=== PATIENT | male | born 1945 | race Caucasian/White ===

== ENCOUNTER 2018-12-13 06:15 | Inpatient (IN) | payer MEDICARE, BC ==
[~2018-12-13] VITALS: Ht 172.7 cm; Wt 81.6 kg
--- NOTE | 2018-12-13 13:20 | NUR ---
ELECTRONICS TECHNOLOGY INSTRUCTOR NOTE :ADMITTED A 73 Y/O MALE ON 5150 HOLD FOR GD PER 5150 HOLD PATIENT ADMITTED FOR FAILURE TO THRIVE ,BECAUSE OF SEVERE DEPRESSION AND LOST 25 POUNDS BECAUSE OF POOR APPETITE NEGLECT BASIC SELF CARE ACTIVITIES,ADVISEMENT GIVEN AND EXPLAINED TO PATIENT .ON 1:1 ASSESSMENT PATIENT ALERT ,ORIENTED TO PERSON UNSTEADY GAIT ,EASILY AGITATED AND UNCOOPERATIVE ,REFUSED BODY ASSESSMENT AND SKIN ASSESSMENT .PATIENT EASILY AGITATED STATED "I WANT TO LEAVE FROM HERE ".PATIENT HAS HX OF DEPRESSION ,TYPE 2 DIABETES MELLITUS ,ESSENTIAL HYPERTENSION,HYPOTHYROIDISM ,HYPERCHOLESTEROLEMIA ,MAJOR DEPRESSIVE DISORDER , NOTIFIED WITH NEW ORDERS .ALL BELONGINGS CHECK BY STAFF PATIENT'S RIGHT HAND BOOK GIVEN AND TO PATIENT AND EXPLAINED TO PATIENT ,START PATIENT ON Q15 MINUTES SAFETY CHECK
[2018-12-13] MEDS ORDERED: MAGNESIUM HYDROXIDE 30 ML UDC PO PRN (13:30)
[2018-12-13] MEDS ORDERED: ACETAMINOPHEN 325 MG TABLET PO PRN (13:30)
[2018-12-13] MEDS ORDERED: TEMAZEPAM 7.5 MG CAPSULE PO PRN (13:30)
[2018-12-13] MEDS ORDERED: MAG HYDROX/AL HYDROX/SIMETH 30 ML UDC PO PRN (13:30)
[2018-12-13] MEDS ORDERED: clonazePAM 0.5 MG TABLET PO PRN (13:30)
[2018-12-13] MEDS ORDERED: SITA50TA PO (13:33)
[2018-12-13] MEDS ORDERED: MELO-107 PO (13:33)
[2018-12-13] MEDS ORDERED: LEVO50TA8 PO (13:33)
[2018-12-13] MEDS ORDERED: BUPR100T6 PO (13:33)
[2018-12-13] MEDS ORDERED: PRAV20TA4 PO (13:33)
[2018-12-13] MEDS ORDERED: LIOT5TAB9 PO (13:33)
[2018-12-13] MEDS ORDERED: LOSA50TA39 PO (13:33)
[2018-12-13] MEDS ORDERED: PIOG30TA10 PO (13:33)
[2018-12-13] MEDS ORDERED: ASPI-605 PO (13:33)
[2018-12-13] MEDS ORDERED: ARIP5TAB20 PO (13:33)
[2018-12-13 16:00] VITALS: BP 125/67
--- NOTE | 2018-12-13 17:38 | NUR ---
RN-CO: PAGED DR MORLEY TO RECONCILE HOME MEDICATIONS.
[2018-12-13 20:22] VITALS: BP 146/69
[2018-12-13] MEDS: ARIPIPRAZOLE 5 MG TABLET PO SCH (21:34)
[2018-12-14 06:33] LABS: ALANINE AMINOTRANSFERASE 15 U/L (12-78); ALBUMIN 3.7 g/dL (3.4-5.0); ALKALINE PHOSPHATASE 69 U/L (46-116); ASPARTATE AMINOTRANSFERASE 9 U/L (15-37); BILIRUBIN,TOTAL 0.3 mg/dL (0.2-1.0); CALCIUM, SERUM 8.7 mg/dL (8.5-10.1); CARBON DIOXIDE 28 mmol/L (21-32); CHLORIDE 102 mmol/L (98-107); CREATININE 1.3 mg/dL (0.6-1.3); GLUCOSE 112 mg/dL (74-106); POTASSIUM 4.1 mmol/L (3.5-5.1); SODIUM SERUM 137 mmol/L (136-145); UREA NITROGEN, BLOOD 26 mg/dL (7-18)
[2018-12-14 07:08] LABS: CHOLESTEROL 152 mg/dL (<200); HDL CHOLESTEROL 42 mg/dL (40-60); LDL 83 mg/dL (0-99); TRIGLYCERIDES 163 mg/dL (30-150)
[2018-12-14 08:00] VITALS: BP 160/72
[2018-12-14] MEDS: buPROPion SR 100 MG TABLET.ER PO SCH (08:41)
--- NOTE | 2018-12-14 12:34 | NUR ---
WOUND CARE CONSULT: PT PRESENTS WITH DRY ABRASION TO RT KNEE, PRESENT ON ADMISSION. NO TENDERNESS, DRAINAGE OR SURROUNDING REDNESS NOTED. WILL SEE PRN. CURRENT TOY SCORE IS 19.
[2018-12-14 16:00] VITALS: BP 136/59
[2018-12-14 20:43] VITALS: BP 156/60
[2018-12-14] MEDS: ATORVASTATIN 10 MG TABLET PO SCH (21:12)
[2018-12-14] MEDS: ARIPIPRAZOLE 5 MG TABLET PO SCH (21:12)
[2018-12-14 22:00] VITALS: BP 137/69
[2018-12-15 06:56] LABS: THYROID STIMULATING HORMONE 1.871 uIU/mL (0.358-3.74)
[2018-12-15] MEDS: LEVOTHYROXINE SODIUM 50 MCG TABLET PO SCH (07:53)
[2018-12-15 08:00] VITALS: BP 125/67
[2018-12-15] MEDS: MELOXICAM 7.5 MG TABLET PO SCH (08:05)
[2018-12-15] MEDS: ASPIRIN EC 81 MG TABLET.DR PO SCH (08:05)
[2018-12-15] MEDS: buPROPion SR 100 MG TABLET.ER PO SCH (08:05)
[2018-12-15] MEDS: LINAGLIPTIN 5 MG TABLET PO SCH (08:05)
[2018-12-15] MEDS: LOSARTAN POTASSIUM 50 MG TABLET PO SCH (08:06)
[2018-12-15] MEDS: LIOTHYRONINE SODIUM (5 MCG/TA 5 MCG TABLET PO SCH (08:06)
--- NOTE | 2018-12-15 13:45 | NUR ---
CHRISTIANE called the pt's son, Gustavo ([phone]), and left a voicemail stating that the SW would like a call back to discuss the pts case.
--- NOTE | 2018-12-15 14:59 | NUR ---
Initial Discharge Plan: Per pt, he currently resides at [address] [place] [address]; ([phone]) alone. CHRISTIANE has not been able to verify the address at this time. CHRISTIANE will work with the pt and the MD regarding appropriate discharge planning. SW will form a safe and proper discharge.
--- NOTE | 2018-12-15 14:59 | NUR ---
Private Branch Exchange Service Adviser Group Session-- Goal: Patient will attend group being held today from 11am -11:45 in the activities room and participate and/or actively listen to peers and be respectful. Intervention: SW facilitated group session with patients regarding the goal or positive outcome/s pt. would like to see happen as a result of their stay in [facility]. SW validated and normalized the pt.�s struggle with expressing his emotions verbally. SW educated the pt. on the stigma surrounding males expressing their emotions and acknowledged patient�s good insight. SW encouraged the patient to plan small objectives towards his goal. Response: Patient was agreeable to participating in group. Patient was alert and oriented. Patient remained calm and cooperative throughout group session. Per patient, he would like his relationships to prosper as a result of his stay at [facility]. Per pt., he has difficulty expressing his emotions verbally and stated, "my ego gets in the way�. Per Patient he is working on expressing his feeling verbally which he has had difficulty with in the past. Patient expressed understanding and was in agreement with stigma surrounding males expressing emotions and stated that he has objectives in mind towards his goal. Plan: Patient will be invited to attend next medical social worker group held.
[2018-12-15] MEDS: ARIPIPRAZOLE 5 MG TABLET PO SCH ×2 (15:23→21:23)
[2018-12-15 16:00] VITALS: BP 142/67
[2018-12-15 19:52] VITALS: BP 126/54
[2018-12-15] MEDS: ATORVASTATIN 10 MG TABLET PO SCH (21:23)
[2018-12-16] MEDS: LEVOTHYROXINE SODIUM 50 MCG TABLET PO SCH (07:17)
[2018-12-16 08:00] VITALS: BP 119/78
[2018-12-16] MEDS: MELOXICAM 7.5 MG TABLET PO SCH (08:17)
[2018-12-16] MEDS: LOSARTAN POTASSIUM 50 MG TABLET PO SCH (08:17)
[2018-12-16] MEDS: ARIPIPRAZOLE 5 MG TABLET PO SCH (08:17)
[2018-12-16] MEDS: buPROPion SR 100 MG TABLET.ER PO SCH (08:17)
[2018-12-16] MEDS: LINAGLIPTIN 5 MG TABLET PO SCH (08:17)
[2018-12-16] MEDS: LIOTHYRONINE SODIUM (5 MCG/TA 5 MCG TABLET PO SCH (08:17)
[2018-12-16] MEDS: ASPIRIN EC 81 MG TABLET.DR PO SCH (08:17)
--- NOTE | 2018-12-16 09:41 | NUR ---
SW called the pt's son, Gustavo ([phone]), and he provided the SW with an address for the pt that did not match the address that the pt had provided the SW with. SW informed the pts son that the discharge plan may entail sending the pt to a nursing facility and the pts son stated that he wanted the pt to have a therapist. CHRISTIANE stated she would inform the psychiatrist to put in a referral for the hospital's psychologist.
--- NOTE | 2018-12-16 09:52 | NUR ---
SW called the pts granddaughter, Krystal ([phone]), who has lived with him in the apartment for the past 2-3 years. CHRISTIANE informed her that the pt may be discharged to a nursing facility and she stated that she would accept any recommendation from the psychiatrist.
[2018-12-16] MEDS ORDERED: DEXTROSE 50%-WATER 50 ML DISP.SYRIN IV PRN (11:00)
[2018-12-16] MEDS: BLOOD SUGAR DIAGNOSTIC 1 EACH STRIP IN SCH ×3 (11:31→21:16)
[2018-12-16] MEDS: INSULIN REGULAR, HUMAN 100 UNIT/ML 3 ML VIAL SQ PRN ×3 (11:50→21:22)
[2018-12-16 16:27] VITALS: BP 145/65
[2018-12-16 20:00] VITALS: BP 156/73
[2018-12-16] MEDS: ATORVASTATIN 10 MG TABLET PO SCH (21:22)
[2018-12-16] MEDS: OLANZAPINE 5 MG/TAB.RAPDIS PO SCH (21:22)
--- NOTE | 2018-12-16 21:22 | NUR ---
RN NOTES BSL- 214mg/dL. 4 units of insulin given per sliding scale. Snacks provided
[2018-12-17 06:48] LABS: BASOPHILS % (AUTO) 0.6 % (0.0-2.0); HEMATOCRIT 40 % (39-51); HEMOGLOBIN 12.9 g/dL (13.5-17.5); LYMPHOCYTES % (AUTO) 27.6 % (20.0-44.0); MEAN CORPUSCULAR HGB CONC 33 g/dl (31.0-36.0); MEAN CORPUSCULAR VOLUME 89 fL (80-96); MONOCYTES # (AUTO) 0.8 /CMM (0.1-1.30); MONOCYTES % (AUTO) 11.2 % (2.0-12.0); NEUTROPHILS # (AUTO) 4.3 /CMM (1.8-8.9); NEUTROPHILS % (AUTO) 58.6 % (43.0-81.0); PLATELET COUNT (AUTO) 284 /CMM (150-450); RED BLOOD CELL COUNT(AUTO) 4.44 MIL/uL (4.5-6.0); WHITE BLOOD COUNT (AUTO) 7.3 K/uL (4.3-11.0)
[2018-12-17 07:16] LABS: CALCIUM, SERUM 8.6 mg/dL (8.5-10.1); CARBON DIOXIDE 25 mmol/L (21-32); CHLORIDE 106 mmol/L (98-107); CREATININE 1.5 mg/dL (0.6-1.3); GLUCOSE 138 mg/dL (74-106); POTASSIUM 4.5 mmol/L (3.5-5.1); SODIUM SERUM 139 mmol/L (136-145); UREA NITROGEN, BLOOD 33 mg/dL (7-18)
[2018-12-17 08:00] VITALS: BP 151/69
[2018-12-17] MEDS: MELOXICAM 7.5 MG TABLET PO SCH (08:08)
[2018-12-17] MEDS: BLOOD SUGAR DIAGNOSTIC 1 EACH STRIP IN SCH ×4 (08:08→21:58)
[2018-12-17] MEDS: buPROPion SR 100 MG TABLET.ER PO SCH (08:09)
[2018-12-17] MEDS: LIOTHYRONINE SODIUM (5 MCG/TA 5 MCG TABLET PO SCH (08:09)
[2018-12-17] MEDS: ASPIRIN EC 81 MG TABLET.DR PO SCH (08:09)
[2018-12-17] MEDS: LOSARTAN POTASSIUM 50 MG TABLET PO SCH (08:09)
[2018-12-17] MEDS: LEVOTHYROXINE SODIUM 50 MCG TABLET PO SCH (08:09)
[2018-12-17] MEDS: LINAGLIPTIN 5 MG TABLET PO SCH (08:09)
[2018-12-17] MEDS: INSULIN REGULAR, HUMAN 100 UNIT/ML 3 ML VIAL SQ PRN ×4 (08:12→22:02)
[2018-12-17 16:00] VITALS: BP_SYST 100; BP_SYST 95; BP_DIAS 65; BP_DIAS 66
[2018-12-17 20:00] VITALS: BP 150/64
[2018-12-17] MEDS: OLANZAPINE 5 MG/TAB.RAPDIS PO SCH (21:28)
[2018-12-17] MEDS: ATORVASTATIN 10 MG TABLET PO SCH (21:28)
[2018-12-18 06:23] LABS: BASOPHILS # (AUTO) 0.1 /CMM (0.0-0.2); BASOPHILS % (AUTO) 0.7 % (0.0-2.0); EOSINOPHILS % (AUTO) 2.9 % (0.0-6.0); HEMATOCRIT 39 % (39-51); HEMOGLOBIN 13.2 g/dL (13.5-17.5); LYMPHOCYTES # (AUTO) 1.8 /CMM (0.8-4.8); LYMPHOCYTES % (AUTO) 25.5 % (20.0-44.0); MEAN CORPUSCULAR HGB CONC 34 g/dl (31.0-36.0); MEAN CORPUSCULAR VOLUME 89 fL (80-96); MONOCYTES # (AUTO) 0.8 /CMM (0.1-1.30); MONOCYTES % (AUTO) 11.1 % (2.0-12.0); NEUTROPHILS # (AUTO) 4.3 /CMM (1.8-8.9); NEUTROPHILS % (AUTO) 59.8 % (43.0-81.0); PLATELET COUNT (AUTO) 272 /CMM (150-450); RED BLOOD CELL COUNT(AUTO) 4.33 MIL/uL (4.5-6.0); WHITE BLOOD COUNT (AUTO) 7.2 K/uL (4.3-11.0)
[2018-12-18 06:51] LABS: CALCIUM, SERUM 8.3 mg/dL (8.5-10.1); CARBON DIOXIDE 23 mmol/L (21-32); CHLORIDE 108 mmol/L (98-107); CREATININE 1.3 mg/dL (0.6-1.3); GLUCOSE 132 mg/dL (74-106); MAGNESIUM 2.1 mg/dL (1.8-2.4); PHOSPHORUS 2.9 mg/dL (2.5-4.9); POTASSIUM 4.7 mmol/L (3.5-5.1); SODIUM SERUM 141 mmol/L (136-145); UREA NITROGEN, BLOOD 29 mg/dL (7-18)
[2018-12-18] MEDS: BLOOD SUGAR DIAGNOSTIC 1 EACH STRIP IN SCH ×4 (07:36→21:03)
--- NOTE | 2018-12-18 07:38 | NUR ---
RN NOTE: 0700 BS 130 MG/DL; NO INSULIN COVERAGE NEEDED.
[2018-12-18 08:00] VITALS: BP 121/69
[2018-12-18] MEDS: ASPIRIN EC 81 MG TABLET.DR PO SCH (08:23)
[2018-12-18] MEDS: MELOXICAM 7.5 MG TABLET PO SCH (08:24)
[2018-12-18] MEDS: buPROPion SR 100 MG TABLET.ER PO SCH (08:24)
[2018-12-18] MEDS: LIOTHYRONINE SODIUM (5 MCG/TA 5 MCG TABLET PO SCH (08:24)
[2018-12-18] MEDS: LEVOTHYROXINE SODIUM 50 MCG TABLET PO SCH (08:25)
[2018-12-18] MEDS: LINAGLIPTIN 5 MG TABLET PO SCH (08:25)
[2018-12-18] MEDS: LOSARTAN POTASSIUM 50 MG TABLET PO SCH (08:25)
[2018-12-18] MEDS: INSULIN REGULAR, HUMAN 100 UNIT/ML 3 ML VIAL SQ PRN ×2 (12:12→17:16)
[2018-12-18 16:00] VITALS: BP 162/76
--- NOTE | 2018-12-18 17:19 | NUR ---
RN NOTE: PATIENT'S BS 171 MG/DL; 3 UNITS OF INSULIN GIVEN PER SLIDING SCALE.
[2018-12-18 17:34] VITALS: BP 104/58
--- NOTE | 2018-12-18 19:42 | NUR ---
COMFORTABLE, RESTING, CALM AND QUIET. A/O X3.
[2018-12-18 20:06] VITALS: BP 111/57
[2018-12-18] MEDS: OLANZAPINE 5 MG/TAB.RAPDIS PO SCH (21:03)
[2018-12-18] MEDS: ATORVASTATIN 10 MG TABLET PO SCH (21:03)
[2018-12-19] MEDS: BLOOD SUGAR DIAGNOSTIC 1 EACH STRIP IN SCH ×4 (07:50→22:11)
[2018-12-19 08:00] VITALS: BP 134/76
[2018-12-19] MEDS: INSULIN REGULAR, HUMAN 100 UNIT/ML 3 ML VIAL SQ PRN ×4 (08:19→22:16)
--- NOTE | 2018-12-19 08:21 | NUR ---
RN NOTE: PATIENT BS 150 MG/DL; 2 UNITS INSULIN GIVEN PER SLIDING SCALE
[2018-12-19] MEDS: LINAGLIPTIN 5 MG TABLET PO SCH (08:22)
[2018-12-19] MEDS: LIOTHYRONINE SODIUM (5 MCG/TA 5 MCG TABLET PO SCH (08:22)
[2018-12-19] MEDS: LEVOTHYROXINE SODIUM 50 MCG TABLET PO SCH (08:22)
[2018-12-19] MEDS: ASPIRIN EC 81 MG TABLET.DR PO SCH (08:22)
[2018-12-19] MEDS: MELOXICAM 7.5 MG TABLET PO SCH (08:22)
[2018-12-19] MEDS: buPROPion SR 100 MG TABLET.ER PO SCH (08:22)
[2018-12-19] MEDS: LOSARTAN POTASSIUM 50 MG TABLET PO SCH (08:23)
[2018-12-19 16:44] VITALS: BP 136/65
[2018-12-19 20:23] VITALS: BP 142/67
[2018-12-19] MEDS: OLANZAPINE 5 MG/TAB.RAPDIS PO SCH (22:12)
[2018-12-19] MEDS: ATORVASTATIN 10 MG TABLET PO SCH (22:12)
[2018-12-20 08:00] VITALS: BP 149/78
[2018-12-20] MEDS: ASPIRIN EC 81 MG TABLET.DR PO SCH (08:24)
[2018-12-20] MEDS: LIOTHYRONINE SODIUM (5 MCG/TA 5 MCG TABLET PO SCH (08:24)
[2018-12-20] MEDS: BLOOD SUGAR DIAGNOSTIC 1 EACH STRIP IN SCH ×4 (08:24→21:59)
[2018-12-20] MEDS: LEVOTHYROXINE SODIUM 50 MCG TABLET PO SCH (08:24)
[2018-12-20] MEDS: LINAGLIPTIN 5 MG TABLET PO SCH (08:24)
[2018-12-20] MEDS: INSULIN REGULAR, HUMAN 100 UNIT/ML 3 ML VIAL SQ PRN ×4 (08:24→22:02)
[2018-12-20] MEDS: MELOXICAM 7.5 MG TABLET PO SCH (08:24)
[2018-12-20] MEDS: buPROPion SR 100 MG TABLET.ER PO SCH (08:24)
[2018-12-20] MEDS: LOSARTAN POTASSIUM 50 MG TABLET PO SCH (08:26)
--- NOTE | 2018-12-20 09:28 | NUR ---
CHRISTIANE faxed a referral to [facility] with attention to Tanisha to the fax number: [phone].
--- NOTE | 2018-12-20 10:59 | NUR ---
Nell ([phone]) from [facility] contacted the and informed her that the pt was accepted to the facility.
[2018-12-20 16:00] VITALS: BP 138/84
[2018-12-20 20:00] VITALS: BP 129/58
[2018-12-20] MEDS: ATORVASTATIN 10 MG TABLET PO SCH (21:59)
[2018-12-20] MEDS: OLANZAPINE 5 MG TABLET PO SCH (21:59)
[2018-12-21] MEDS: LEVOTHYROXINE SODIUM 50 MCG TABLET PO SCH (07:30)
[2018-12-21] MEDS: BLOOD SUGAR DIAGNOSTIC 1 EACH STRIP IN SCH ×4 (07:30→22:04)
[2018-12-21 07:46] LABS: CALCIUM, SERUM 8.6 mg/dL (8.5-10.1); CARBON DIOXIDE 25 mmol/L (21-32); CHLORIDE 108 mmol/L (98-107); CREATININE 1.4 mg/dL (0.6-1.3); GLUCOSE 166 mg/dL (74-106); MAGNESIUM 2.3 mg/dL (1.8-2.4); PHOSPHORUS 2.6 mg/dL (2.5-4.9); POTASSIUM 4.5 mmol/L (3.5-5.1); SODIUM SERUM 142 mmol/L (136-145); UREA NITROGEN, BLOOD 30 mg/dL (7-18)
[2018-12-21 07:49] LABS: BASOPHILS % (AUTO) 0.8 % (0.0-2.0); EOSINOPHILS % (AUTO) 3.1 % (0.0-6.0); HEMATOCRIT 39 % (39-51); HEMOGLOBIN 12.9 g/dL (13.5-17.5); LYMPHOCYTES # (AUTO) 1.5 /CMM (0.8-4.8); LYMPHOCYTES % (AUTO) 25.6 % (20.0-44.0); MEAN CORPUSCULAR HGB CONC 33 g/dl (31.0-36.0); MEAN CORPUSCULAR VOLUME 90 fL (80-96); MONOCYTES # (AUTO) 0.7 /CMM (0.1-1.30); MONOCYTES % (AUTO) 11.1 % (2.0-12.0); NEUTROPHILS # (AUTO) 3.5 /CMM (1.8-8.9); NEUTROPHILS % (AUTO) 59.4 % (43.0-81.0); PLATELET COUNT (AUTO) 260 /CMM (150-450); RED BLOOD CELL COUNT(AUTO) 4.39 MIL/uL (4.5-6.0); WHITE BLOOD COUNT (AUTO) 5.9 K/uL (4.3-11.0)
[2018-12-21 08:00] VITALS: BP 160/91
[2018-12-21] MEDS: INSULIN REGULAR, HUMAN 100 UNIT/ML 3 ML VIAL SQ PRN ×4 (08:10→22:08)
[2018-12-21] MEDS: MELOXICAM 7.5 MG TABLET PO SCH (09:18)
[2018-12-21] MEDS: LIOTHYRONINE SODIUM (5 MCG/TA 5 MCG TABLET PO SCH (09:19)
[2018-12-21] MEDS: LOSARTAN POTASSIUM 50 MG TABLET PO SCH (09:19)
[2018-12-21] MEDS: LINAGLIPTIN 5 MG TABLET PO SCH (09:20)
[2018-12-21] MEDS: buPROPion SR 100 MG TABLET.ER PO SCH (09:20)
[2018-12-21] MEDS: ASPIRIN EC 81 MG TABLET.DR PO SCH (09:20)
[2018-12-21 16:00] VITALS: BP 150/89
--- NOTE | 2018-12-21 16:01 | NUR ---
GROUP NOTE: SW prompted pt to attend group therapy on this present day but pt was resting in his room and stated he did not want to go out at the moment.
--- NOTE | 2018-12-21 16:02 | NUR ---
CHRISTIANE spoke to Dr. Arce ([phone]), pts primary physician, and he stated that he wanted the to send a referral to [facility].
--- NOTE | 2018-12-21 16:03 | NUR ---
CHRISTIANE faxed a referral to [facility] with attention to Admissions to the fax number: [phone].
--- NOTE | 2018-12-21 16:04 | NUR ---
SW received a call from [facility] and they stated that there is no bed availability at this moment and the pt would have to be placed on a waiting list.
--- NOTE | 2018-12-21 16:05 | NUR ---
SW faxed two referrals for the pt: [facility] to the fax number: [phone] [facility] to the fax number: [phone].
[2018-12-21 20:18] VITALS: BP 110/58
[2018-12-21] MEDS: OLANZAPINE 5 MG TABLET PO SCH (22:05)
[2018-12-21] MEDS: ATORVASTATIN 10 MG TABLET PO SCH (22:05)
[2018-12-21 22:55] VITALS: BP 118/66
[2018-12-22 08:00] VITALS: BP 165/79
[2018-12-22] MEDS: BLOOD SUGAR DIAGNOSTIC 1 EACH STRIP IN SCH ×4 (08:40→21:01)
[2018-12-22] MEDS: INSULIN REGULAR, HUMAN 100 UNIT/ML 3 ML VIAL SQ PRN ×4 (08:52→21:02)
[2018-12-22] MEDS: buPROPion SR 100 MG TABLET.ER PO SCH (08:55)
[2018-12-22] MEDS: LIOTHYRONINE SODIUM (5 MCG/TA 5 MCG TABLET PO SCH (08:55)
[2018-12-22] MEDS: LINAGLIPTIN 5 MG TABLET PO SCH (08:56)
[2018-12-22] MEDS: LEVOTHYROXINE SODIUM 50 MCG TABLET PO SCH (08:56)
[2018-12-22] MEDS: LOSARTAN POTASSIUM 50 MG TABLET PO SCH (08:57)
[2018-12-22] MEDS: ASPIRIN EC 81 MG TABLET.DR PO SCH (08:57)
[2018-12-22] MEDS: MELOXICAM 7.5 MG TABLET PO SCH (08:57)
--- NOTE | 2018-12-22 09:39 | NUR ---
CHRISTIANE called Mirta at [facility] and left her a voicemail stating that the SW would like to know if the pt was accepted to their facility.
--- NOTE | 2018-12-22 09:51 | NUR ---
CHRISTIANE called [facility] and left a voicemail for the admissions department regarding the referral that was sent for the pt.
--- NOTE | 2018-12-22 15:20 | NUR ---
AMBULATING ABOUT UNIT.CALM,COOPERATIVE,COMPLIANT.
--- NOTE | 2018-12-22 15:37 | NUR ---
GROUP NOTE: SW prompted pt to attend group therapy on this present day to discuss discharge planning, pt was on the phone with his outside medical doctor discussing his discharge plan and stated his doctor wanted him discharged to a SNF near [place].
--- NOTE | 2018-12-22 15:45 | NUR ---
CHRISTIANE faxed a referral to [facility] with attention to Admissions to the fax number: [phone].
[2018-12-22 16:00] VITALS: BP 147/90
[2018-12-22 20:33] VITALS: BP 122/68
[2018-12-22] MEDS: OLANZAPINE 5 MG TABLET PO SCH (21:35)
[2018-12-22] MEDS: ATORVASTATIN 10 MG TABLET PO SCH (21:35)
[2018-12-23 07:09] LABS: CALCIUM, SERUM 8.6 mg/dL (8.5-10.1); CARBON DIOXIDE 23 mmol/L (21-32); CHLORIDE 108 mmol/L (98-107); CREATININE 1.5 mg/dL (0.6-1.3); GLUCOSE 189 mg/dL (74-106); MAGNESIUM 2.2 mg/dL (1.8-2.4); PHOSPHORUS 2.9 mg/dL (2.5-4.9); POTASSIUM 4.5 mmol/L (3.5-5.1); SODIUM SERUM 140 mmol/L (136-145); UREA NITROGEN, BLOOD 37 mg/dL (7-18)
[2018-12-23 07:13] LABS: BASOPHILS % (AUTO) 0.7 % (0.0-2.0); EOSINOPHILS % (AUTO) 2.9 % (0.0-6.0); HEMATOCRIT 38 % (39-51); HEMOGLOBIN 12.6 g/dL (13.5-17.5); LYMPHOCYTES # (AUTO) 1.7 /CMM (0.8-4.8); MEAN CORPUSCULAR HGB CONC 33 g/dl (31.0-36.0); MEAN CORPUSCULAR VOLUME 90 fL (80-96); MONOCYTES # (AUTO) 0.8 /CMM (0.1-1.30); MONOCYTES % (AUTO) 12.1 % (2.0-12.0); NEUTROPHILS % (AUTO) 59.3 % (43.0-81.0); PLATELET COUNT (AUTO) 269 /CMM (150-450); RED BLOOD CELL COUNT(AUTO) 4.28 MIL/uL (4.5-6.0); WHITE BLOOD COUNT (AUTO) 6.8 K/uL (4.3-11.0)
[2018-12-23] MEDS: BLOOD SUGAR DIAGNOSTIC 1 EACH STRIP IN SCH ×3 (07:37→17:35)
[2018-12-23] MEDS: LEVOTHYROXINE SODIUM 50 MCG TABLET PO SCH (07:49)
[2018-12-23] MEDS: INSULIN REGULAR, HUMAN 100 UNIT/ML 3 ML VIAL SQ PRN ×2 (07:49→12:30)
[2018-12-23 08:00] VITALS: BP 139/72
[2018-12-23] MEDS: buPROPion SR 100 MG TABLET.ER PO SCH (08:11)
[2018-12-23] MEDS: LINAGLIPTIN 5 MG TABLET PO SCH (08:11)
[2018-12-23] MEDS: MELOXICAM 7.5 MG TABLET PO SCH (08:11)
[2018-12-23] MEDS: LIOTHYRONINE SODIUM (5 MCG/TA 5 MCG TABLET PO SCH (08:11)
[2018-12-23] MEDS: ASPIRIN EC 81 MG TABLET.DR PO SCH (08:12)
[2018-12-23] MEDS: LOSARTAN POTASSIUM 50 MG TABLET PO SCH (08:13)
--- NOTE | 2018-12-23 09:25 | NUR ---
RN-CO: DR TOPETE ORDERED TO DISCONTINUE HOLD AND DISCHARGE PATIENT. PATIENT IS COOPERATIVE TO CARE. DENIED SUICIDAL AND HOMICIDAL IDEATION. DENIED AUDITORY AND VISUAL HALLUCINATION. NO ACUTE DISTRESS NOTED. PATIENT IS AWARE OF HIS DISCHARGE.
--- NOTE | 2018-12-23 09:47 | NUR ---
RN-CO: Patient was seen and examined by Dr Sahu and medically cleared for discharge.
--- NOTE | 2018-12-23 13:06 | NUR ---
CHRISTIANE called [facility] and inquired about the referral that was sent. Jesika stated that she would have it reviewed and would call back as soon as possible.
--- NOTE | 2018-12-23 13:09 | NUR ---
CHRISTIANE called the pts granddaughter, Krystal ([phone]), and informed her that the pt is going to be discharged today to either [facility] or [facility]. She stated that was acceptable and she stated that she would inform the pt's son.
--- NOTE | 2018-12-23 13:54 | NUR ---
Bibi from [facility] called the SW and stated that the pt is in the process of being admitted and that his days just needed to be checked.
--- NOTE | 2018-12-23 14:57 | NUR ---
CHRISTIANE spoke to the pts doctor, Dr. Escobar ([phone]), and informed him that the pt will be discharged to [facility]. Doctor stated that he wanted records faxed to [phone].
--- NOTE | 2018-12-23 14:59 | NUR ---
CHRISTIANE faxed records to Dr. Escobar to the fax number: [phone].
[2018-12-23 16:00] VITALS: BP 153/88
--- NOTE | 2018-12-23 18:29 | NUR ---
GPS/RN - DISCHARGE NOTES PATIENT DISCHARGED TO [facility] IN STABLE CONDITION. CALLED REPORT TO AJIT SHAW ([phone]). PATIENT ALERT AND ORIENTED X 3, DENIES SI/HI, AMBULATORY, DENIES PAIN, NOT IN ANY FORM OF DISTRESS. PATIENT REFUSED WOUND PICTURES TO BE TAKEN, NOTED RIGHT KNEE ABRASION HEALING. PATIENT COMPLIANT WITH MEDICATIONS, COOPERATIVE WITH TREATMENT PLANS. BEHAVIOR IMPROVED, PSYCHIATRIC TREATMENT PLANS MET, MEDICAL TREATMENT PLANS DEFERRED FOR CONTINUAL MONITORING. ALL PERSONAL BELONGINGS GIVEN. PATIENT SIGNED DISCHARGE PAPERWORK. PATIENT LEFT THE UNIT AT 18:20 VIA AMBULANCE.
== END 2018-12-23 18:15 | DRG 885 ==
LOC: GPS 12:55
PROVIDERS: ADMIT Psychiatry & Neurology Psychiatry; ATTEND Student in an Organized Health Care Education/Training Program
DX: F33.3 Major depressive disorder, recurrent, severe with psychotic symptoms (principal); N17.0 Acute kidney failure with tubular necrosis; N18.9 Chronic kidney disease, unspecified; E11.22 Type 2 diabetes mellitus with diabetic chronic kidney disease; E03.9 Hypothyroidism, unspecified; E78.5 Hyperlipidemia, unspecified; I12.9 Hypertensive chronic kidney disease with stage 1 through stage 4 chronic kidney disease, or unspecified chronic kidney disease; Z73.6 Limitation of activities due to disability; Z79.4 Long term (current) use of insulin
CPT/HCPCS: 36415; 80048-TC; 80053-TC; 80061-TC; 82962-TC; 83735-TC; 84100-TC; 84439-TC; 84443-TC; 85025-TC; 87081-TC; J1815